=== PATIENT | female | born 2000 | race Caucasian/White ===

== ENCOUNTER 2023-05-21 10:55 | Emergency (ER) | payer OTHER ==
[~2023-05-21] VITALS: Ht 160 cm; Wt 65.5 kg
[2023-05-21] MEDS ORDERED: OMEP40CA4 PO (11:03)
[2023-05-21] MEDS ORDERED: MULTTAB20 PO (11:03)
[2023-05-21] MEDS ORDERED: PROPARACAINE 0.5% OPHTH SOL 15ML OD ONE (14:25)
[2023-05-21] MEDS ORDERED: FLUORESCEIN OPHTH 1MG STRIP OD ONE (14:25)
[2023-05-21] MEDS ORDERED: ERYTOIN8 OD (15:06)
[2023-05-21 15:27] VITALS: BP 106/67; TEMP 98.2; O2SAT 99
== END 2023-05-21 15:28 | disposition home or self-care (01) ==
LOC: M ED 10:55
DX: O9A.212 Injury, poisoning and certain other consequences of external causes complicating pregnancy, second trimester (principal); T52.0X1A Toxic effect of petroleum products, accidental (unintentional), initial encounter; X58.XXXA Exposure to other specified factors, initial encounter; Y92.89 Other specified places as the place of occurrence of the external cause; Y93.89 Activity, other specified; Y99.8 Other external cause status; Z3A.20 20 weeks gestation of pregnancy; Z88.0 Allergy status to penicillin

== ENCOUNTER → 2023-06-27 | Outpatient (CLI) | payer OTHER ==
[~2023-06-27] MED LIST: ERYTOIN8 OD; MULTTAB20 PO; OMEP40CA4 PO
== END ==
LOC: M WHC 08:09
PROVIDERS: ATTEND Obstetrics & Gynecology
DX: O36.5920 Maternal care for other known or suspected poor fetal growth, second trimester, not applicable or unspecified (principal); Z3A.25 25 weeks gestation of pregnancy

== ENCOUNTER → 2023-07-18 | Outpatient (CLI) | payer OTHER | LOC: M WHC 15:29 | PROVIDERS: ATTEND Advanced Practice Midwife | DX: Z3A.26 26 weeks gestation of pregnancy (principal) ==

== ENCOUNTER 2023-07-24 15:19 | Outpatient (CLI) | payer OTHER ==
[~2023-07-24] VITALS: Ht 160 cm; Wt 70.5 kg
[~2023-07-24 15:19] MED LIST changes: +ALBUTEROL SULFATE 2.5MG/0.5ML INH NEB SOLN INH PRN; +EPINEPHrine INJ 1 MG/ML 1ML AMP IM PRN; +NS 1,000 ML IV SCH; +diphenhydrAMINE 50MG/ML VIAL IV PRN; +methylPREDNISolone 125MG 2ML VIAL IV PRN
[2023-07-24] MEDS ORDERED: IRON SUCROSE 200 MG in NS 100 ML IV ONE (15:30)
[2023-07-24 15:39] VITALS: BP 121/58; O2SAT 97
[2023-07-24 17:28] VITALS: BP 119/64; O2SAT 100
== END 2023-07-24 17:30 ==
LOC: M INFU 15:19
PROVIDERS: ATTEND Advanced Practice Midwife
DX: D64.9 Anemia, unspecified (principal); Z88.0 Allergy status to penicillin
CPT/HCPCS: 96365; J1756

== ENCOUNTER 2023-07-26 14:07 | Outpatient (CLI) | payer OTHER ==
[~2023-07-26] VITALS: Ht 160 cm; Wt 71.3 kg
[~2023-07-26 14:07] MED LIST changes: -NS 1,000 ML IV SCH
[2023-07-26 14:25] VITALS: BP 100/59; O2SAT 100
[2023-07-26] MEDS ORDERED: NS 1,000 ML IV SCH (14:30)
[2023-07-26] MEDS ORDERED: IRON SUCROSE 200 MG in NS 100 ML OVER 1 HR IV ONE (14:30)
[2023-07-26 15:43] VITALS: BP 103/55; O2SAT 100
== END 2023-07-26 15:50 ==
LOC: M INFU 14:07
PROVIDERS: ATTEND Advanced Practice Midwife
DX: D64.9 Anemia, unspecified (principal); Z88.0 Allergy status to penicillin
CPT/HCPCS: 96365; J1756

== ENCOUNTER → 2023-08-01 | Outpatient (CLI) | payer OTHER ==
[~2023-08-01] MED LIST changes: -ALBUTEROL SULFATE 2.5MG/0.5ML INH NEB SOLN INH PRN; -EPINEPHrine INJ 1 MG/ML 1ML AMP IM PRN; -diphenhydrAMINE 50MG/ML VIAL IV PRN; -methylPREDNISolone 125MG 2ML VIAL IV PRN
== END ==
LOC: M WHC 10:26
PROVIDERS: ATTEND Advanced Practice Midwife
DX: O36.5921 Maternal care for other known or suspected poor fetal growth, second trimester, fetus 1 (principal); Z3A.26 26 weeks gestation of pregnancy

== ENCOUNTER 2023-08-05 15:10 | Outpatient (CLI) | payer OTHER ==
[~2023-08-05] VITALS: Ht 160 cm; Wt 70.5 kg
[2023-08-05 15:10] VITALS: BP 102/57; O2SAT 98
[~2023-08-05 15:10] MED LIST changes: +ALBUTEROL SULFATE 2.5MG/0.5ML INH NEB SOLN INH PRN; +EPINEPHrine INJ 1 MG/ML 1ML AMP IM PRN; +NS 1,000 ML IV SCH; +diphenhydrAMINE 50MG/ML VIAL IV PRN; +methylPREDNISolone 125MG 2ML VIAL IV PRN
[2023-08-05] MEDS ORDERED: IRON SUCROSE 200 MG in NS 100 ML IV ONE (15:25)
[2023-08-05 17:03] VITALS: BP 106/59; O2SAT 99
== END 2023-08-05 17:05 ==
LOC: M INFU 15:10
PROVIDERS: ATTEND Advanced Practice Midwife
DX: D50.9 Iron deficiency anemia, unspecified (principal); Z88.0 Allergy status to penicillin
CPT/HCPCS: 96365; J1756

== ENCOUNTER 2023-08-07 15:30 | Outpatient (CLI) | payer OTHER ==
[2023-08-07 15:30] VITALS: BP 111/59; O2SAT 100
[~2023-08-07 15:30] MED LIST changes: -NS 1,000 ML IV SCH
[2023-08-07] MEDS ORDERED: NS 1,000 ML IV SCH (15:45)
[2023-08-07] MEDS ORDERED: IRON SUCROSE 200 MG in NS 100 ML OVER 1 HR IV ONE (15:45)
[2023-08-07 17:00] VITALS: BP 117/59; O2SAT 97
== END 2023-08-07 17:00 ==
LOC: M INFU 15:30
PROVIDERS: ATTEND Advanced Practice Midwife
DX: D64.9 Anemia, unspecified (principal); Z88.0 Allergy status to penicillin
CPT/HCPCS: 96365; J1756

== ENCOUNTER 2023-08-13 14:50 | Outpatient (CLI) | payer OTHER ==
[~2023-08-13] VITALS: Ht 160 cm; Wt 73.6 kg
[~2023-08-13 14:50] MED LIST changes: -ALBUTEROL SULFATE 2.5MG/0.5ML INH NEB SOLN INH PRN; -EPINEPHrine INJ 1 MG/ML 1ML AMP IM PRN; -diphenhydrAMINE 50MG/ML VIAL IV PRN; -methylPREDNISolone 125MG 2ML VIAL IV PRN
[2023-08-13 15:06] VITALS: BP 123/66
[2023-08-13] MEDS ORDERED: HOME MED LIST COMPLETE! XX SCH (15:10)
== END 2023-08-13 17:26 | disposition home or self-care (01) ==
LOC: M LDO 14:50
PROVIDERS: ATTEND Advanced Practice Midwife
DX: O36.8130 Decreased fetal movements, third trimester, not applicable or unspecified (principal); Z3A.32 32 weeks gestation of pregnancy; O36.5930 Maternal care for other known or suspected poor fetal growth, third trimester, not applicable or unspecified; Z88.0 Allergy status to penicillin
CPT/HCPCS: 59025; 76815; 76819; 76820; 76821; 81001; 87086; G0463

== ENCOUNTER 2023-08-17 11:26 | Outpatient (CLI) | payer OTHER ==
[~2023-08-17] VITALS: Ht 160 cm; Wt 72.6 kg
[2023-08-17 11:48] VITALS: BP 106/60
[2023-08-17] MEDS ORDERED: HOME MED LIST COMPLETE! XX SCH (11:50)
== END 2023-08-17 12:30 | disposition home or self-care (01) ==
LOC: M LDO 11:26
PROVIDERS: ATTEND Obstetrics & Gynecology
DX: O26.893 Other specified pregnancy related conditions, third trimester (principal); N89.8 Other specified noninflammatory disorders of vagina; Z3A.32 32 weeks gestation of pregnancy; O36.5930 Maternal care for other known or suspected poor fetal growth, third trimester, not applicable or unspecified; Z88.0 Allergy status to penicillin; Z79.899 Other long term (current) drug therapy
CPT/HCPCS: 59025; 76815; G0463

== ENCOUNTER 2023-08-19 16:34 | Outpatient (CLI) | payer OTHER ==
[~2023-08-19] VITALS: Ht 160 cm; Wt 72.3 kg
[2023-08-19] MEDS ORDERED: HOME MED LIST COMPLETE! XX SCH (16:55)
[2023-08-19 16:56] VITALS: BP 115/61
== END 2023-08-19 17:28 | disposition home or self-care (01) ==
LOC: M LDO 16:34
PROVIDERS: ATTEND Obstetrics & Gynecology
DX: O26.893 Other specified pregnancy related conditions, third trimester (principal); O99.891 Other specified diseases and conditions complicating pregnancy; N93.0 Postcoital and contact bleeding; O47.03 False labor before 37 completed weeks of gestation, third trimester; O36.5930 Maternal care for other known or suspected poor fetal growth, third trimester, not applicable or unspecified; O40.3XX0 Polyhydramnios, third trimester, not applicable or unspecified; Z3A.32 32 weeks gestation of pregnancy; Z88.0 Allergy status to penicillin; Z79.899 Other long term (current) drug therapy
CPT/HCPCS: 59025; G0463

== ENCOUNTER 2023-11-27 22:58 | Emergency (ER) | payer OTHER ==
[~2023-11-27] VITALS: Ht 160 cm; Wt 62.5 kg
[2023-11-28 00:40] VITALS: TEMP 98.3
[2023-11-28 00:45] LABS: BASO % 0.1 % (0.0-1.0); EOS % 0.6 % (0.0-3.0); HEMATOCRIT 38.6 % (36.0-47.0); HEMOGLOBIN 13.1 g/dl (12.0-15.5); LYMPH # 2.2 10^3/uL (1.5-5.0); LYMPH % 30.7 % (24.0-44.0); MEAN CORPUSCULAR HEMOGLOBIN 27.5 pg (27.0-33.0); MEAN CORPUSCULAR HGB CONC 33.9 g/dl (32.0-36.5); MEAN CORPUSCULAR VOLUME 81.1 fl (80.0-96.0); MONO # 0.6 10^3/uL (0.0-0.8); MONO % 7.7 % (2.0-8.0); NEUTROPHILS # 4.3 10^3/uL (1.5-8.5); NEUTROPHILS % 60.8 % (36.0-66.0); PLATELET COUNT, AUTOMATED 327 10^3/uL (150-450); RED BLOOD COUNT 4.76 10^6/uL (4.00-5.40); WHITE BLOOD COUNT 7.1 10^3/uL (4.0-10.0)
[2023-11-28 01:12] LABS: LIPASE 50 U/L (12-53)
[2023-11-28 01:14] LABS: ALBUMIN 4.2 G/DL (3.2-5.2); ALKALINE PHOSPHATASE 58 U/L (46-116); ALT/SGPT 19 U/L (7.0-40); AST/SGOT 12 U/L (<34); BILIRUBIN,DIRECT 0.2 MG/DL (<0.4); BILIRUBIN,TOTAL 0.5 MG/DL (0.3-1.2); BLOOD UREA NITROGEN 15 MG/DL (9-23); CALCIUM LEVEL 8.7 MG/DL (8.5-10.1); CARBON DIOXIDE LEVEL 27 MMOL/L (20-31); CHLORIDE LEVEL 108 MMOL/L (98-107); CREATININE FOR GFR 0.83 MG/DL (0.55-1.30); GLOMERULAR FILTRATION RATE > 60.0 (>60); GLUCOSE, FASTING 73 MG/DL (60-100); POTASSIUM SERUM 4.3 MMOL/L (3.5-5.1); SODIUM LEVEL 139 MMOL/L (136-145); TOTAL PROTEIN 7.1 G/DL (5.7-8.2)
[2023-11-28 01:15] LABS: HCG, SERUM QUALITATIVE NEGATIVE (NEGATIVE)
[2023-11-28 01:55] VITALS: O2SAT 100
[2023-11-28 02:00] VITALS: BP 118/78
[2023-11-28] MEDS ORDERED: ISOVUE-370 76% 100ML VIAL As Ordered ONE (02:26)
[2023-11-28] MEDS: NS 1,000 ML IV ONE (02:39)
[2023-11-28] MEDS: KETOROLAC 30 MG/ML 1ML VIAL IV ONE (02:40)
[2023-11-28] MEDS ORDERED: MIRA3350 PO (04:38)
== END 2023-11-28 04:51 | disposition home or self-care (01) ==
LOC: M ED 22:58
DX: K59.00 Constipation, unspecified (principal); K57.30 Diverticulosis of large intestine without perforation or abscess without bleeding; Z88.0 Allergy status to penicillin; Z79.899 Other long term (current) drug therapy
CPT/HCPCS: 74177; 80048; 80076; 81001; 83690; 84703; 85025; 96361; 96374; 99284; J1885; Q9967